=== PATIENT | male | born 1950 | race Caucasian/White ===

== ENCOUNTER 2017-09-06 19:09 | Emergency (ER) | payer MEDICARE ==
[2017-09-07] MEDS ORDERED: AMLO5TAB88 PO (14:43)
[2017-09-07] MEDS ORDERED: ATOR20TA65 PO (14:43)
[2017-09-07] MEDS ORDERED: CLOP75TA33 PO (14:43)
[2017-09-07] MEDS ORDERED: MORP30TA66 PO (14:43)
== END 2017-09-06 20:15 | disposition left against medical advice (07) ==
LOC: ER 19:34
DX: M54.9 Dorsalgia, unspecified (principal); Z53.21 Procedure and treatment not carried out due to patient leaving prior to being seen by health care provider